=== PATIENT | female | born 1950 | race Caucasian/White ===

== ENCOUNTER 2017-02-28 15:30 | Outpatient (RCR) | payer BC ==
[~2017-02-28 15:30] MED LIST: ATIVAN 1MG T1 MG/TAB PO; DAZIDOX10 MG PO; ESTRACE0.1 MG/GM VG; FLEXERIL5 MG PO; MULTI VITAMINS1 TAB PO; ULTRAM 50MG TAB50 MG PO; VITAMIN C500 MG PO; VITAMIN E 400 U4001 PO
== END 2017-04-01 08:06 | disposition home or self-care (01) ==
LOC: WSPT 15:30
DX: I89.0 Lymphedema, not elsewhere classified (principal)

== ENCOUNTER 2017-12-08 14:45 | Outpatient (RCR) | payer MEDICARE, BC | END 2018-01-09 08:31 | disposition home or self-care (01) | LOC: WSPT 14:45 | DX: I89.0 Lymphedema, not elsewhere classified (principal) ==

== ENCOUNTER 2018-03-23 09:30 | Outpatient (RCR) | payer MEDICARE, BC | END 2018-03-27 08:13 | disposition home or self-care (01) | LOC: WSPT 09:30 | DX: I89.0 Lymphedema, not elsewhere classified (principal) | CPT/HCPCS: G8984-GP; G8985-GP; G8986-GP ==

== ENCOUNTER → 2019-08-15 | Outpatient (CLI) | payer MEDICARE, BC | LOC: BHSO 07:49 | DX: F06.32 Mood disorder due to known physiological condition with major depressive-like episode (principal) ==

== ENCOUNTER → 2019-09-28 | Outpatient (CLI) | payer MEDICARE, BC | LOC: BHSO 13:40 | DX: F06.32 Mood disorder due to known physiological condition with major depressive-like episode (principal) | CPT/HCPCS: G0463 ==

== ENCOUNTER 2021-03-24 13:31 | Outpatient (RCR) | payer MEDICARE, BC | END 2021-03-26 13:33 | disposition home or self-care (01) | LOC: WSPT 13:31 | DX: I89.0 Lymphedema, not elsewhere classified (principal) ==